=== PATIENT | male | born 1990 | race Caucasian/White ===

== ENCOUNTER 2020-03-29 23:18 | Emergency (ER) | payer OTHER, SELFPAY ==
[2020-03-29 23:31] VITALS: BP 123/77; PULSE 84; RESP 18; TEMP 36.8; O2SAT 98; BMI 54.8
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
[2020-03-29 23:38] VITALS: BP 123/77; PULSE 88; RESP 18; TEMP 36.8; O2SAT 98
[2020-03-30] MEDS: NaPROXEN 500 MG TABLET PO (00:34)
== END 2020-03-30 00:40 | disposition home or self-care (01) ==
LOC: HO.ED 03-30 00:01
PROVIDERS: Emergency Provider Emergency Medicine
DX: S19.9XXA Unspecified injury of neck, initial encounter (principal); M54.2 Cervicalgia; V43.52XA Car driver injured in collision with other type car in traffic accident, initial encounter; Y93.9 Activity, unspecified; Y92.410 Unspecified street and highway as the place of occurrence of the external cause; Y99.9 Unspecified external cause status
CPT/HCPCS: 99283; 99284